=== PATIENT | female | born 1970 | race Caucasian/White ===

== ENCOUNTER 2022-05-29 10:15 | Day surgery (SDC) | payer BC ==
[~2022-05-29] VITALS: Ht 160 cm; Wt 85.7 kg
[~2022-05-29 10:15] MED LIST: IBUP200 PO
[2022-05-29] MEDS ORDERED: FLUT.05NI (11:12)
[2022-05-29] MEDS ORDERED: IBU800 MG PO (11:13)
--- NOTE | 2022-05-29 12:14 | NUR ---
05/29/22 1214 YUMIKO BARAJAS SHORTLY AFTER COMING OUT OF OR, BREATHING BECAME SHALLOW, O2 SAT 91%. PT PLACED ON 15L. CURRENTLY 100%. TRIAL DOWN TO 10L
--- NOTE | 2022-05-29 12:46 | NUR ---
05/29/22 1246 YUMIKO BARAJAS 5/325MG GIVEN FOR PAIN BILAT EARS. 07/27. BP 123/94, PULSE 74, O2 99% ON RA PRESENTLY. PT DOES DIP TO 91% AT TIMES. IS AT BEDSIDE AND REMINDS PT TO TAKE A DEEP BREATH. INCENTIVE SPIROMOMETER GIVEN TO PT. DEMONSTRATED KNOWLEDGE.
== END 2022-05-29 13:10 | disposition home or self-care (01) ==
LOC: ORSCSDS 10:15
PROVIDERS: Otolaryngology
PROC: 099570Z Drainage of Right Middle Ear with Drainage Device, Via Natural or Artificial Opening (ICD-10-PCS; principal; 2022-05-29 11:30)
PROC: 099670Z Drainage of Left Middle Ear with Drainage Device, Via Natural or Artificial Opening (ICD-10-PCS; principal; 2022-05-29 11:30)
DX: H69.83 Other specified disorders of Eustachian tube, bilateral (principal); H91.93 Unspecified hearing loss, bilateral; E66.9 Obesity, unspecified; Z68.33 Body mass index [BMI] 33.0-33.9, adult
CPT/HCPCS: A9270; J2250; J2704; J3010; J7120

== ENCOUNTER → 2022-07-19 | Outpatient (CLI) | payer BC ==
[~2022-07-19] MED LIST changes: +FLUT.05NI; +IBU800 MG PO
[2022-07-21 10:10] LABS: CHLAMYDIA TRACHOMATIS, NAA Negative (Negative); HPV 16 Negative (Negative); HPV 18 Negative (Negative); HPV OTHER HR TYPES Negative (Negative)
== END ==
LOC: LAB 09:15 → LAB SHORT 09:15
PROVIDERS: Nurse Practitioner Family
DX: Z12.4 Encounter for screening for malignant neoplasm of cervix (principal)
CPT/HCPCS: 87491; 87591; 87624; G0145